=== PATIENT | female | born 1980 | race Caucasian/White ===

== ENCOUNTER → 2022-01-27 | Outpatient (CLI) | payer OTHER | LOC: M RAD 10:17 | PROVIDERS: ATTEND Internal Medicine Gastroenterology | DX: R11.2 Nausea with vomiting, unspecified (principal); Z53.9 Procedure and treatment not carried out, unspecified reason ==

== ENCOUNTER 2022-05-01 14:29 | Outpatient (RCR) | payer OTHER | END 2022-05-04 | LOC: M PT 14:29 | PROVIDERS: ATTEND Pediatrics | DX: M54.6 Pain in thoracic spine (principal) ==

== ENCOUNTER 2022-05-15 13:45 | Outpatient (RCR) | payer OTHER | END 2022-06-04 | LOC: M PT 13:45 | PROVIDERS: ATTEND Pediatrics | DX: M54.6 Pain in thoracic spine (principal) ==